=== PATIENT | female | born 1950 | race Caucasian/White ===

== ENCOUNTER → 2017-12-21 | Outpatient (CLI) | payer OTHER ==
--- NOTE | ~2017-12-21 | 2DMMODE ---
[facility] [place] [place] [address] 2 D/M-MODE ECHOCARDIOGRAM Name: EPSTEINJONEL Room #: REG [facility]#: [id number] Admission: 12/21/17 Attend Phys: Jose Herron MD, Discharge: Date of : 54 Date of Service: 12/21/17 1204 Report #: [id number] THIS REPORT FOR: //name// APPROVED REPORT Study performed: 12/21/2017 10:56:45 EXAM: Comprehensive 2D, Doppler, and color-flow Echocardiogram Patient Location: Out-Patient Room #: Echo lab 2 Status: routine BSA: 2.33 HR: 76 bpm BP: 152/94 mmHg Other Information Study Quality: Adequate Indications Diabetes Dyspnea Hypertension/HDD 2D Dimensions RVDd: 32.81 mm LVEF(%): 60.62 (>50%) IVSd: 10.74 (7-11mm) LVOT Diam: 21.28 (18-24mm) LVDd: 50.95 mm PWd: 11.46 (7-11mm) Ascending Ao: 26.67 (22-36mm) LVDs: 34.36 (25-40mm) Aortic Root: 30.37 mm Rosa's LVEF: 60.62 % Volumes Left Atrial Volume (Systole) Single Plane 4CH: 29.49 mL Single Plane 2CH: 44.53 mL LA ESV Index: 18.00 mL/m2 Aortic Valve AoV Peak Osmany.: 1.20 m/s AO Peak Gr.: 5.74 mmHg LVOT Max P.87 mmHg LVOT Max V: 1.10 m/s ERIC Vmax: 3.27 cm2 Mitral Valve E/A Ratio: 0.7 [facility] [address] [place] [address] 2 D/M-MODE ECHOCARDIOGRAM Name: JONEL EPSTEIN Mode Room #: REG [facility]#: [id number] Admission: 12/21/17 Attend Phys: Jose Herron MD, Discharge: Date of : 54 Date of Service: 12/21/17 1204 Report #: [id number] MV Decel. Time: 241.47 ms MV E Max Osmany.: 0.64 m/s MV A Osmany.: 0.92 m/s MV PHT: 70.03 ms IVRT: 106.11 ms Pulmonary Valve PV Peak Osmany.: 0.87 m/s PV Peak Gr.: 3.04 mmHg Pulmonary Vein P Vein S: 0.55 m/s P Vein A: 0.28 m/s P Vein D: 0.29 m/s P Vein A Dur.: 124.6 msec P Vein S/D Ratio: 1.90 Left Ventricle The left ventricle is normal size. There is normal left ventricular wall thickness. The left ventricular systolic function is normal. The left ventricular ejection fraction is within the normal range. LVEF is 60-65%. Grade I - abnormal relaxation pattern. Right Ventricle The right ventricle is normal size. The right ventricular systolic function is normal. Atria The left atrium size is normal. The right atrium size is normal. Aortic Valve The aortic valve is normal in structure. No aortic regurgitation is present. There is no aortic valvular stenosis. Mitral Valve The mitral valve is normal in structure. There is no mitral valve regurgitation noted. No evidence of mitral valve stenosis. Tricuspid Valve The tricuspid valve is normal in structure. There is no tricuspid valve regurgitation noted. Pulmonic Valve The pulmonary valve is normal in structure. There is no pulmonic valvular regurgitation. Great Vessels The aortic root is normal in size. IVC is normal in size and [facility] [address] [place] [address] 2 D/M-MODE ECHOCARDIOGRAM Name: LUCIANJONEL Mode [id number] Admission: 12/21/17 Attend Phys: Jose Herron MD, Discharge: Date of : 54 Date of Service: 12/21/17 1204 Report #: [id number] collapses >50% with inspiration. Pericardium There is no pericardial effusion. <Conclusion> The left ventricle is normal size. LVEF is 60-65%. The left atrium size is normal. The right atrium size is normal. The aortic valve is normal in structure. The mitral valve is normal in structure. The tricuspid valve is normal in structure. The pulmonary valve is normal in structure. There is no pericardial effusion. <ELECTRONICALLY SIGNED> By: Tone Reynaga MD 12/21/174 03 03 Tone Reynaga MD /INF
== END ==
LOC: CV 08:33
DX: I10 Essential (primary) hypertension (principal); I87.2 Venous insufficiency (chronic) (peripheral); R60.9 Edema, unspecified; R06.00 Dyspnea, unspecified

== ENCOUNTER → 2018-01-17 | Outpatient (CLI) | payer OTHER | LOC: RAD 14:18 | DX: R06.02 Shortness of breath (principal) ==

== ENCOUNTER → 2018-11-08 | Outpatient (CLI) | payer OTHER ==
--- NOTE | 2018-11-11 19:48 | SLE ---
[facility] [place] [address] POLYSOMNOGRAPHY STUDY Name: JONEL EPSTEIN Room #: REG [facility]#: [id number] Admission: 11/08/18 ������������������ Attend Phys: Julián Nieto MD Discharge: ������������������ Date of : 54 Report #: [id number] THIS REPORT FOR: //name// CC: Julián Whitley MD DATE OF SERVICE: 11/08/2018 ATTENDING PHYSICIAN: Dr. Karan Whitley. The patient is 68-year-old who weighs 255 pounds with a BMI of 38.8. The patient's Sage score was 1. The patient had a previous sleep study and was found to have moderate OLEKSANDR with worsening during supine sleep. The patient returned to [facility] for CPAP titration study. During the night study, the patient spent 466 minutes in bed and slept for 369 minutes with a sleep efficiency of 79%. Sleep latency was 22.4 minutes with a REM latency of 86 minutes. Overall, sleep architecture showed normal stage 1 sleep, increased stage 2 sleep, reduced N3 sleep and normal REM sleep. EKG monitoring revealed an average heart rate of 73 beats per minute. No sustained arrhythmias observed. PLMS were seen at an index of 7.6 per hour and only 0.5 per hour caused EEG arousals. The patient was started on CPAP at a pressure of 5 cm water and titrated up to 16 cm water. At the final pressure, the patient slept for 37 minutes. The patient had 29 minutes of REM sleep. The patient had supine sleep as well. The patient's AHI was reduced to 0 per hour and oxygen saturation remained above 93%. IMPRESSION: 1. Sleep apnea diagnosed by previous sleep study. 2. No clinically significant periodic limb movements. RECOMMENDATIONS: 1. CPAP at 16 cm water completely eliminated the patient's sleep apnea and should be used on a nightly basis. 2. Follow up in 4-6 weeks to assess compliance with CPAP and to document clinical improvement. 3. Weight loss is strongly advised. 4. Avoid GLUING MACHINE OPERATOR depressants. [facility] [address] [place] [address] POLYSOMNOGRAPHY STUDY Name: JONEL EPSTEIN Room #: REG [facility].#: [id number] Admission: 11/08/18 ������������������ Attend Phys: Julián Nieto MD Discharge: ������������������ Date of : 54 Report #: [id number] 5. Cautioned regarding driving until symptoms of sleep apnea resolve with the use of CPAP. ��������������������������������������������� <ELECTRONICALLY SIGNED> ���������������������������������������� By: Julián Nieto MD ��������������������������������������������� 11/11/18 1948 1450 1856 Julián Nieto MD /nt
== END ==
LOC: SLEEPLAB 11:05
DX: G47.30 Sleep apnea, unspecified (principal)